=== PATIENT | male | born 1930 | race Caucasian/White ===

== ENCOUNTER 2018-10-30 10:18 | Inpatient (IN) | payer MEDICARE ==
[~2018-10-30] VITALS: Ht 195.6 cm; Wt 75.4 kg
[~2018-10-30 10:18] MED LIST: CARV-39 PO; DIGO125T PO; ENOX40SY4 SQ; FURO-92 PO; LISI5TAB7 PO; POTA10TA11 PO; TRAM-47 PO; WARF5TAB PO
--- NOTE | 2018-10-30 10:26 | NUR ---
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
--- NOTE | 2018-10-30 10:29 | NUR ---
PT TO ROOM FROM LOBBY
--- NOTE | 2018-10-30 10:31 | NUR ---
88 Y/O MALE PRESENTS TO ED WITH C/O LACK OF APPETITE. "COUGH OFF AND ON SINCE AUG. IT CLEARED UP BEG September, THEN STARTED AGAIN A FEW WEEKS AGO. I CANT GET HIM TO EAT MUCH. HE'S LOST ABOUT 20-30 POUNDS IN THE LAST 6-7 WEEKS." NO C/O PAIN, N/V/D, TRAUMA, SYNCOPE, CP. BEDSIDE.
[2018-10-30] MEDS ORDERED: SODIUM CHLORIDE 0.9% 1,000 ML IV ONE (10:39)
--- NOTE | 2018-10-30 10:50 | NUR ---
PIV ESTABLISHED. PT TOLERATED WITH NO COMPLICATIONS. BEDSIDE.
[2018-10-30] MEDS ORDERED: SODIUM CHLORIDE 0.9% 1,000ML IVBOLUS ONE (11:00)
[2018-10-30] MEDS ORDERED: SODIUM CHLORIDE FLUSH 10ML SYR IVF ONE (11:00)
[2018-10-30 11:18] LABS: BASOPHILS # (AUTO) 0.01 x10^3/uL (0-0.1); BASOPHILS % (AUTO) 0 % (0-1); EOSINOPHILS # (AUTO) 0.07 x10^3/uL (0-0.4); EOSINOPHILS % (AUTO) 1 % (1-7); LYMPHOCYTES # (AUTO) 1.12 x10^3/uL (1-3.4); LYMPHOCYTES % (AUTO) 22 % (22-44); MD NO; MEAN CORPUSCULAR HEMOGLOBIN 31.3 pg (27.5-34.5); MEAN CORPUSCULAR HGB CONC 32.8 g/dL (33.2-36.2); MEAN CORPUSCULAR VOLUME 95.6 fL (81-97); MEAN PLATELET VOLUME 9.2 fL (7.4-10.4); MONOCYTES # (AUTO) 0.35 x10^3/uL (0.2-0.8); MONOCYTES % (AUTO) 7 % (2-9); NEUTROPHILS # (AUTO) 3.62 x10^3/uL (1.8-6.8); NEUTROPHILS % (AUTO) 70 % (42-75); PLATELET COUNT 200 x10^3/uL (130-400); RED BLOOD COUNT 4.77 x10^6/uL (4.38-5.82); RED CELL DISTRIBUTION WIDTH 13.9 % (9.4-14.8)
[2018-10-30 11:26] LABS: INTERNATIONAL NORMALIZED RATIO 2.23 (0.93-1.1); PROTHROMBIN TIME 22.7 Seconds (9.6-11.5)
[2018-10-30 11:27] LABS: ALBUMIN 3.5 g/dL (3.4-5.0); ANION GAP 7 mmol/L (5-15); CALCIUM 9.6 mg/dL (8.5-10.1); CHLORIDE 104 mmol/L (98-107)
[2018-10-30 11:33] LABS: ALANINE AMINOTRANSFERASE 21 U/L (12-78); ALKALINE PHOSPHATASE 89 U/L (45-117); BILIRUBIN,TOTAL 2.2 mg/dL (0.2-1.0); CREATININE 1.38 mg/dL (0.7-1.3); TOTAL PROTEIN 7.5 g/dL (6.4-8.2); TROPONIN I < 0.015 ng/mL (0.000-0.045)
--- NOTE | 2018-10-30 11:33 | NUR ---
pt resting on gurney. NO ACUTE DISTRESS NOTED. BEDSIDE. NO NEEDS REQUESTED AT THIS TIME.
--- NOTE | 2018-10-30 11:36 | NUR ---
PER . " I KNOW HE TAKES LISINOPRIL, WARFARIN, POTASSIUM, CARVIDELOL." SHE DOESN'T KNOW THE DOSAGES AND SAID SHE CAN GET THEM FROM HOME.
--- NOTE | 2018-10-30 12:57 | NUR ---
PT GIVEN URINAL. PT RESTING ON GURNEY. PT EDUCATED MORE REGARDING ADMISSION. PT VERBALIZED UNDERSTANDING. NO ACUTE DISTRESS NOTED. NO NEEDS REQUESTED AT THIS TIME.
[2018-10-30] MEDS ORDERED: CEFTRIAXONE PMX 1GM/50ML 50 ML IVPB ONE (13:00)
[2018-10-30] MEDS ORDERED: AZITHROMYCIN 500 MG in SODIUM CHLORIDE 0.9% 250 ML IVPB ONE (13:00)
[2018-10-30] MEDS ORDERED: CEFTRIAXONE PMX 1GM/50ML 50 ML ONE (13:08)
--- NOTE | 2018-10-30 13:23 | NUR ---
PT RESTING ON HOSP BED. HOSPITALIST BEDSIDE. NO ACUTE DISTRESS NOTED. BEDSIDE.
--- NOTE | 2018-10-30 13:49 | NUR ---
BEDSIDE REPORT TO JONATHON CHAVARRIA.
[2018-10-30 14:15] LABS: MICROSCOPIC NOT IND
[2018-10-30 14:18] LABS: CULTURE INDICATED? NO
[2018-10-30] MEDS ORDERED: OMNIPAQUE 350 MG/ML, 75ML BOTTLE ONE (14:25)
--- NOTE | 2018-10-30 14:30 | NUR ---
RECEIVED REPORT FROM JONATHON SMITH. PT RESTING ON [facility]. EDUARDO. VSS. MEDICATED PER SEP. LUNCH TRAY PROVIDED.
--- NOTE | 2018-10-30 15:03 | NUR ---
PT RESTING ON GURNEY. NADN. HELMS.
[2018-10-30 15:20] LABS: HCT (SEDRATE) 45.6 % (39.2-51.8)
[2018-10-30] MEDS ORDERED: LORazepam 0.5MG TABLET PO ONE (15:30)
[2018-10-30] MEDS ORDERED: LORazepam 0.5MG TABLET ONE (15:35)
--- NOTE | 2018-10-30 16:11 | NUR ---
PT RESTING ON GURNEY. NADN. HELMS.
--- NOTE | 2018-10-30 16:18 | NUR ---
DINNER TRAY ORDERED FOR PT.
--- NOTE | 2018-10-30 16:44 | NUR ---
PT MOVED FROM [facility] TO HOSPITAL BED. WAFFLE CUSHION APPLIED. PT REPOSITIONED IN BED. NADN. MONITORS REMAIN IN PLACE. REMAINS AT BEDSIDE.
--- NOTE | 2018-10-30 18:37 | NUR ---
PT PULLED OUT PIV, ALL MONITORS AND WAS STANDING IN ROOM. PT REFUSED TO GET BACK INTO BED. REFUSED TO HAVE STAFF ASSIST HIM. AFTER TALKING W/ PT PT WAS ABLE TO GET INTO BED. BONNIE ALARM SET. PT ALLOWED RN TO PLACE NC ON PT AFTER DETAILED EXPLANATION. PT CONTINUES TO REFUSE PIV. PT REMAINS CONFUSED. 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 TECHNICAL ARTIST AWARE OF NEED FOR SITTER.
[2018-10-30] MEDS: SODIUM CHLORIDE 0.9% 1,000 ML IV SCH (18:53)
--- NOTE | 2018-10-30 19:05 | NUR ---
REPORT RECEIVED FROM AURA HOLT.
--- NOTE | 2018-10-30 19:09 | NUR ---
REPORT GIVEN TO MELISSA FAIRCHILD RN.
--- NOTE | 2018-10-30 19:17 | NUR ---
REPORT GIVEN TO LAKISHA HOLT.
--- NOTE | 2018-10-30 19:58 | NUR ---
DESIREE SERRANO [phone]
--- NOTE | 2018-10-30 20:08 | NUR ---
PTS SON WAS AT BEDSIDE. POC DISCUSSED. PTS SON HAS NOW LEFT. PT GIVEN SANDWICH AND CONDIMENTS. PT DENIES FURTHER NEED AT THIS TIME. CALL LIGHT ON LAP. BED RAILS UPX2. PT IN [place] ROOM.
--- NOTE | 2018-10-30 20:48 | NUR ---
REPORT GIVEN TO IVETTE HOLT. ROOM IS WAITING FOR CURTAIN TO BE CHANGED BECAUSE IT WAS AN ISOLATION ROOM.
[2018-10-30] MEDS ORDERED: CARVEDILOL 25 MG TABLET PO SCH (21:00)
[2018-10-30] MEDS ORDERED: POTASSIUM CHLORIDE 20 MEQ TAB.ER.PRT ONE (21:08)
[2018-10-30] MEDS: POTASSIUM CHLORIDE 10 MEQ TABLET.ER PO SCH (21:25)
[2018-10-30 21:59] VITALS: BP 112/60
[2018-10-31 01:32] VITALS: BP 123/74
[2018-10-31] MEDS: SODIUM CHLORIDE 0.9% 1,000 ML IV SCH (06:25)
[2018-10-31 07:01] VITALS: BP 137/78
[2018-10-31] MEDS: POTASSIUM CHLORIDE 10 MEQ TABLET.ER PO SCH (08:59)
[2018-10-31] MEDS ORDERED: LISINOPRIL 5 MG TABLET PO SCH (09:00)
[2018-10-31] MEDS ORDERED: FUROSEMIDE 40 MG TABLET PO SCH (09:00)
[2018-10-31] MEDS ORDERED: DIGOXIN 0.125 MG TABLET PO SCH (09:00)
[2018-10-31] MEDS ORDERED: WARFARIN 5 MG TABLET PO-COUM SCH (09:00)
[2018-10-31 09:24] LABS: INTERNATIONAL NORMALIZED RATIO 1.85 (0.93-1.1)
[2018-10-31 13:20] VITALS: BP 124/76
[2018-10-31] MEDS ORDERED: MEGE400O4 PO (13:41)
[2018-10-31] MEDS ORDERED: WARFARIN 5 MG TABLET PO-COUM ONE (18:00)
[2018-11-01] MEDS ORDERED: MEGESTROL ORAL.SUSP 40 MG/ML PO SCH (09:00)
== END 2018-10-31 16:04 | disposition home or self-care (01) | DRG 189 ==
LOC: ED 11:10 → EDIP 12:43 → 3NE 21:50 → DCLOUNGE 10-31 15:49
PROVIDERS: ADMIT Hospitalist; ATTEND Hospitalist
DX: J96.01 Acute respiratory failure with hypoxia (principal); N17.9 Acute kidney failure, unspecified; R64 Cachexia; Z68.1 Body mass index [BMI] 19.9 or less, adult; R62.7 Adult failure to thrive; I12.9 Hypertensive chronic kidney disease with stage 1 through stage 4 chronic kidney disease, or unspecified chronic kidney disease; F03.90 Unspecified dementia, unspecified severity, without behavioral disturbance, psychotic disturbance, mood disturbance, and anxiety; I48.2 Chronic atrial fibrillation; N18.3 Chronic kidney disease, stage 3 (moderate); Z79.01 Long term (current) use of anticoagulants
CPT/HCPCS: 36415; 71045; 71260; 80053; 81003; 82140; 83605; 83880; 84145; 84484; 85025; 85610; 85651; 85730; 86140; 87040; 93005; 93306; 99285; G0378; J0456; J0696; Q9967; J7030; J7050